=== PATIENT | female | born 1955 | race Caucasian/White ===

== ENCOUNTER 2020-07-30 08:28 | Outpatient (CLI) | payer OTHER, SELFPAY ==
--- NOTE | ~2020-07-30 | DEXA_ITS ---
Bone Density Report Name: Britt Cline Age: 64 Sex: Female Ethnicity: White Date of : 1955 Indication: postmenopausal osteoporosis; height loss; Referring Provider: JERED VU Study: Bone densitometry was performed. Exam Date: July 30, 2020 Accession number: [id number] Bone Density: Region BMD T-score Z-score Classification AP Spine (L1-L4) 0.752 -2.7 -0.8 Osteoporosis Femoral Neck (Left) 0.543 -2.8 -1.1 Osteoporosis Total Hip (Left) 0.662 -2.3 -1.0 Osteopenia Total Hip Bilateral Avg 0.677 -2.2 -0.8 Osteopenia Femoral Neck (Right) 0.532 -2.9 -1.3 Osteoporosis Total Hip (Right) 0.691 -2.1 -0.7 Osteopenia World Health Organization criteria for BMD impression classify patients as: Normal (T-score at or above -1.0), Osteopenia (T-score between -1.0 and -2.5), or Osteoporosis (T-score at or below -2.5). 10-year Fracture Risk: FRAX not reported because: Some T-score for Spine Total or Hip Total or Femoral Neck at or below -2.5 Previous Exams: Region Exam Age BMD T-score BMD Change BMD Change Date g/cm2 vs Baseline vs Previous AP Spine(L1-L4) 07/30/2020 64 0.752 -2.7 -0.006(-0.8%)# -0.006(-0.8%)# 06/17/2011 55 0.758 -2.6 Total Hip(Left) 07/30/2020 64 0.662 -2.3 0.011(1.8%)# 0.011(1.8%)# 06/17/2011 55 0.651 -2.4 Total Hip(Right) 07/30/2020 64 0.691 -2.1 0.055(8.6%)# 0.055(8.6%)# 06/17/2011 55 0.636 -2.5 *Denotes significance at 95% confidence level, LSC for AP Spine = 0.022 g/cm2, LSC for Total Hip = 0.027 g/cm2 Clinical Information Provided by Patient: Has used the following medications: Calcium Patient maximum height was 65 Menopause Age: 45 No regular weight bearing exercise Onset of menses at age 11 Number of children 1 Impression: The patient has osteoporosis, based on the Right Femoral Neck T-score. No significant bone loss was observed. Discussion: INCREASED RISK OF FRACTURE. BONE DENSITY IS UNDESIRABLY LOW AT ONE OR MORE SKELETAL SITES, CONSISTENT WITH POSTMENOPAUSAL OSTEOPOROSIS. This patient's lowest T-score meets the World Health Organization's (WHO) criteria for osteoporosis at one or more sites (T-score -2.5 or below). In untreated patients, the risk of osteoporotic fracture increases approximately two-fold for each 1.0 SD decrease in T-score. Low bone density is not the only risk factor for fracture; also consider factors such as patient's age, frailty or poor health, risk of falling, risk of injury, pr
--- NOTE | ~2020-07-30 | MM_ITS ---
EXAMINATION: MM screening collette BI w jairo HISTORY: Screening mammogram TECHNIQUE: Craniocaudal and mediolateral oblique 3-D tomosynthesis images were obtained and synthetic 2-D images were generated. Bilateral rotated lateral CC views. ...CAD analysis was submitted and int erpreted. COMPARISON: No prior mammogram is available for comparison at this institution. BREAST PARENCHYMAL COMPOSITION: There are scattered areas of fibroglandular density. FINDINGS: There is mammographic asymmetry in the medial right breast on craniocaudal view. Otherwise there is no evidence of suspicious mass, calcification, or architectural distortion to sugg est malignancy in either breast. There has been no suspicious interval change. IMPRESSION: 1. Right breast mammographic asymmetry 2. Diagnostic right mammogram is recommended, with ultrasound if required. BI-RADS Category 0: Incomplete: Needs additional imaging evaluation. Reviewed, dictated and finalized at location A.
== END 2020-07-30 08:29 | disposition home or self-care (01) ==
LOC: ANHIMG 08:29
PROVIDERS: PCP Internal Medicine; Visit Provider Internal Medicine
DX: Z12.31 Encounter for screening mammogram for malignant neoplasm of breast (principal); M81.0 Age-related osteoporosis without current pathological fracture; R92.8 Other abnormal and inconclusive findings on diagnostic imaging of breast; M85.852 Other specified disorders of bone density and structure, left thigh; M85.851 Other specified disorders of bone density and structure, right thigh
CPT/HCPCS: 77063; 77067; 77080

== ENCOUNTER 2020-08-20 11:44 | Outpatient (CLI) | payer OTHER, SELFPAY ==
--- NOTE | ~2020-08-20 | MMUS_ITS ---
EXAMINATION: MM diagnostic mammo unilat RT, US breast RT limited HISTORY: Follow-up right breast asymmetry TECHNIQUE: Additional 3-D tomosynthesis images of the right breast were performed and synthetic 2-D i mages were generated. CAD analysis was submitted and interpreted. High resolution right breast ultras ound was performed. COMPARISON: 07/30/2020 BREAST PARENCHYMAL COMPOSITION: Breast composed of scattered areas of fibroglandular density. FINDINGS: MAMMOGRAPHIC FINDINGS: The focal area of asymmetry medially in the right breast is less apparent with spot compression views , likely superimposed fibroglandular tissue. No discrete mass or architectural distortion. ULTRASOUND: Limited left breast ultrasound: Normal heterogeneous echotexture without focal solid or cystic mass. IMPRESSION: 1. No mammographic or sonographic evidence for malignancy in the right breast. 2. Routine yearly screening mammogram and regular clinical breast examination are recommended. BI-RADS Category 2: Benign finding(s). Reviewed, dictated and finalized at location A. IMPRESSION: 1. No mammographic or sonographic evidence for malignancy in the right breast. 2. Routine yearly screening mammogram and regular clinical breast examination a re recommended. BI-RADS Category 2: Benign finding(s).
== END 2020-08-20 11:45 | disposition home or self-care (01) ==
LOC: ANHIMG 11:45
PROVIDERS: PCP Internal Medicine; Visit Provider Internal Medicine
DX: R92.8 Other abnormal and inconclusive findings on diagnostic imaging of breast (principal)
CPT/HCPCS: 76642; 77065

== ENCOUNTER 2021-06-13 22:33 | Emergency (ER) | payer OTHER, SELFPAY ==
--- NOTE | ~2021-06-13 | XR_ITS ---
EXAMINATION: XR knee LT 3V DATE: 06/13/2021 23:22 INDICATION: Left knee pain. Fall. TECHNIQUE: 5 views of left knee were obtained. COMPARISON: None. FINDINGS: Bone alignment is normal. No fracture. There is mild osteoarthritis of patellofemoral carmita rtment. There is a small knee joint effusion. IMPRESSION: 1. Mild left knee osteoarthritis. 2. Small left knee joint effusion. Reviewed, dictated and finalized at location A.
--- NOTE | ~2021-06-13 | CT_ITS ---
EXAMINATION: CT knee LT wo con DATE: 06/14/2021 00:17 INDICATION: Left knee pain post fall TECHNIQUE: High resolution computed tomography (CT) of the left knee was performed without intravenou s contrast. Additional sagittal and coronal reconstructions were performed. Automated exposure contro l and iterative reconstruction technique were employed. The dose-length product was 499.77 mGy-cm. COMPARISON: None FINDINGS: Lateral dislocation of the patella with small impaction fracture along the inferior aspect of the med ial patellar facet which remains perched along the cephalad aspect of the lateral rim of the lateral trochlea. The trough of the impaction fracture measures approximately 2-3 mm in depth. No evident cor responding fracture of the distal femur. Some associated small layering lipohemarthrosis with fat, fl uid and hematocrit levels at the lateral gutter of the suprapatellar pouch. Cannot exclude an additio nal small minimally displaced likely cortical avulsion fracture along the medial margin of the patell a although there is no significant thickening of the patellofemoral retinaculum or surrounding inflam matory stranding to more specifically suggest this. IMPRESSION: 1. Lateral patellar dislocation which is perched along the cephalad margin of the lateral rim of the lateral trochlea with small mildly depressed impaction fracture along the inferior aspect of the medi al patellar facet. 2. Small lipohemarthrosis. Reviewed, dictated and finalized at location A. IMPRESSION: 1. Lateral patellar dislocation which is perched along the cephalad margin of t he lateral rim of the lateral trochlea with small mildly depressed impaction fr acture along the inferior aspect of the medial patellar facet. 2. Small lipohemarthrosis.
[2021-06-13 22:40] VITALS: BP 141/73; PULSE 98; RESP 20; TEMP 36.8; O2SAT 96
[2021-06-13] MEDS: KETOROLAC 30 MG/ML VIAL (*BKC) IV PUSH (23:08)
[2021-06-14] MEDS: ONDANSETRON HCL ODT 4 MG TABLET PO (00:04)
[2021-06-14 00:30] VITALS: BP 121/66; PULSE 78; RESP 20; O2SAT 98
[2021-06-14] MEDS: ORPHENADRINE CITRATE 30 MG/ML 2 ML VIAL 60 MG IM (01:18)
--- NOTE | 2021-06-14 01:20 | PC.NURSE ---
Pt. resting c foot elevated, reports from CT scan back and ERP Dr Moore discussed report c pt. Orders obtained for more pain medication and pt agreeable to reduction of patellar attempt.
[2021-06-14] MEDS: ONDANSETRON INJ 4 MG/2 ML VIAL IV PUSH (01:48)
[2021-06-14] MEDS: HYDROmorphone HCL INJ (*CRX) 2 MG/ML VIAL 1 MG IV PUSH ×2 (01:49)
--- NOTE | 2021-06-14 01:58 | PC.NURSE ---
ERP DR Moore attempted to reduce and replace pts. patellar, unsuccessful, pt in severe pain. Pt. wishes to go to [place] if able to have procedure done. ERP notified house supv at [place]. Will await call back from [place] ER.
--- NOTE | 2021-06-14 02:20 | ED.LOWEXIN ---
HPI - Extremity Injury (Lower) General Chief Complaint: Extremity Injury, Lower Stated Complaint: AMB Time Seen by Provider: 06/13/21 22:50 Source: patient and family Mode of arrival: ambulatory Limitations: no limitations History of Present Illness HPI Narrative: Mrs fuentes comes in after walking around her bar at home and hitting her left knee. It does not sound like the force of impact was significant, but comes in with pain to the left knee which is moderately severe to severe, ongoing since the injury 20 minutes ago. She has dislocated the knee 4 times in the past according to the patient. No modifying factors, No apparent numbness anywhere with structures associated with this. MD complaint: knee injury Onset (ago): minute(s) Type of Injury: blunt Place: home Severity: moderate Relieving factors: nothing and immobilization Exacerbating factors: weight bearing and movement Context: direct blow Associated symptoms: unable to bear weight Related Data Home Medications Medication Instructions Recorded Confirmed cholecalciferol (vitamin D3) 50 50 mcg PO DAILY 02/19/21 06/13/21 mcg (2,000 unit) capsule calcium carbonate-vitamin D3 [All 2 tablet PO 06/13/21 Day Calcium] Allergies Allergy/AdvReac Type Severity Reaction Status Date / Time Penicillins Allergy Unknown Unknown Verified 02/14/21 07:52 Sulfa (Sulfonamide Allergy Unknown Unknown Verified 02/14/21 07:52 Antibiotics) sulfanilamide Allergy Unknown Unknown Verified 02/14/21 07:52 ERYTHROMYCINS Allergy Mild Unknown Uncoded 02/14/21 07:52 Review of Systems Constitutional: Constitutional: Reports no additional constitutional complaints Eyes: Eyes: Reports no additional eye complaints ENT: Reports system reviewed and no additional complaints, except as documented Cardiovascular: Cardiovascular: Reports no additional cardiovascular complaints Respiratory: Respiratory: Reports no additional respiratory complaints Gastrointestinal: Gastrointestinal: Reports no additional gastrointestinal complaints Genitourinary: Genitourinary: Reports no additional female genitourinary complaints Musculoskeletal: Musculoskeletal: Reports no additional musculoskeletal complaints Integumentary/Breasts: Skin/Breast: Reports system reviewed and no additional complaints, except as docu Neurologic: Reports system reviewed and no additional complaints, except as documented Psychiatric: Psychiatric: Reports no additional psychiatric complaints Endocrine: Endocrine: Reports no additional endocrine complaints Hematologic/Lymphatic: Hematologic/Lymphatic: Reports no additional hematologic/lymphatic complaints Allergic/Immunologic: Allergic/Immunologic: Reports no additional allergic/immunologic complaints PMFSH Past Medical History Medical History (Updated 06/14/21 @ 03:00 by Rajendra Moore MD) Age-related osteoporosis without current pathological fracture Anxiety Overweight (07/06/17) Postmenopausal disorder Pure hypercholesterolemia Vitamin D deficiency Surgical History Surgical History (Updated 06/14/21 @ 02:44 by Rajendra Moore MD) No significant past surgical history Family History Family History Mother Depression Father Acute myocardial infarction Social History Social History Smoking status: Former smoker Second hand tobacco smoke exposure: No Alcohol intake: current Exam Const: General: alert Orientation/consciousness: patient oriented x3 Other: Appears to be in pain HENMT: Head: normal to inspection Ears: external ears normal General nose exam: Normal external nose present Mouth: Yes Normal oral and palatal mucosa present Eyes: Conjunctivae: conjunctivae normal Neck: Neck: normal visual inspection Chest: Chest palpation & inspection: normal inspection of the chest Resp: Effort & Inspection: normal respiratory effort Aus
--- NOTE | 2021-06-14 02:22 | PC.NURSE ---
ERP spoke to ER DR rosamaria Kirkland who accepts for pt transfer to their ER. Paperwork signed for transfer.
--- NOTE | 2021-06-14 02:37 | PC.NURSE ---
Call placed to [facility], report given to Izzy. Call paged for [facility] for transfer. No crew available at this time, will have a wait time for pt transfer. Pt and spouse informed.
[2021-06-14 02:45] VITALS: BP 121/70; PULSE 73; RESP 18; TEMP 36.6; O2SAT 96
--- NOTE | 2021-06-14 03:00 | PC.NURSE ---
Report to EMS, pt transferred to cot for transport c difficulty.
== END 2021-06-14 03:01 | disposition short-term general hospital (02) ==
PROVIDERS: Emergency Provider Emergency Medicine; PCP Internal Medicine
DX: S83.005A Unspecified dislocation of left patella, initial encounter (principal); W22.8XXA Striking against or struck by other objects, initial encounter
CPT/HCPCS: 73562; 73700; 96372; 96374; 96375; 96376; 99285; A9270; J1170; J1885; J2360; J2405

== ENCOUNTER 2021-06-14 03:32 | Emergency (ER) | payer OTHER, SELFPAY ==
[2021-06-14] VITALS (16 sets, daily range): BP systolic 93–140; BP diastolic 60–84; PULSE 77–100; RESP 8–23; TEMP 36.5; O2SAT 99–100
[2021-06-14] MEDS: fentaNYL CITRATE INJ (*CRX) 100 MCG/2 ML VIAL (03:45)
[2021-06-14] MEDS: LORazepam INJ (*CRX) 2 MG/ML VIAL (03:53)
--- NOTE | 2021-06-14 04:22 | ED.LOWEXIN ---
HPI - Extremity Injury (Lower) General Chief Complaint: Extremity Injury, Lower Stated Complaint: lf knee dislocation Time Seen by Provider: 06/14/21 03:36 History of Present Illness HPI Narrative: 65 yo female w/ h/o patellar dislocation transferred from [place] for the same. She was walking earlier this evening when she bumped it against a table and it popped out of place. They were not able to reduce it at [place], so they sent her here for further management. Related Data Home Medications Medication Instructions Recorded Confirmed cholecalciferol (vitamin D3) 50 50 mcg PO DAILY 02/19/21 06/13/21 mcg (2,000 unit) capsule calcium carbonate-vitamin D3 [All 2 tablet PO DAILY 06/13/21 06/14/21 Day Calcium] Allergies Allergy/AdvReac Type Severity Reaction Status Date / Time Penicillins Allergy Unknown Unknown Verified 02/14/21 07:52 Sulfa (Sulfonamide Allergy Unknown Unknown Verified 02/14/21 07:52 Antibiotics) sulfanilamide Allergy Unknown Unknown Verified 02/14/21 07:52 ERYTHROMYCINS Allergy Mild Unknown Uncoded 02/14/21 07:52 Review of Systems Constitutional: Constitutional: Denies fever(s) Cardiovascular: Cardiovascular: Denies chest pain Respiratory: Respiratory: Denies dyspnea Musculoskeletal: Musculoskeletal: Denies back pain Neurologic: Denies numbness and Denies weakness [facility] Past Medical History Medical History Age-related osteoporosis without current pathological fracture Anxiety Overweight (07/06/17) Postmenopausal disorder Pure hypercholesterolemia Vitamin D deficiency Surgical History Surgical History No significant past surgical history Family History Family History Mother Depression Father Acute myocardial infarction Social History Social History Smoking status: Former smoker Second hand tobacco smoke exposure: No Alcohol intake: current Exam Const: General: no acute distress and alert Orientation/consciousness: patient oriented x3 HENMT: Head: normal to inspection Throat: posterior oropharynx normal Resp: Effort & Inspection: normal respiratory effort Auscultation: clear to auscultation bilaterally Cardio: Rate: regular rate Rhythm: regular rhythm Other: 2+ left DP and PT Skin: General skin exam: normal color Wounds: no wounds Neuro: General: patient oriented x3, moves all extremities, no focal motor deficits and CN's II-XI intact bilaterally Extrem: Other: lateral patellar dislocation Course Vital Signs Vital signs: Vital Signs Temperature 36.5 C 06/14/21 03:30 Pulse Rate 100 06/14/21 03:30 Respiratory Rate 23 H 06/14/21 03:30 Blood Pressure 140/69 06/14/21 03:30 Pulse Oximetry 100 06/14/21 03:30 Temperature 36.5 C 06/14/21 04:30 Pulse Rate 78 06/14/21 06:20 Respiratory Rate 11 L 06/14/21 06:20 Blood Pressure 106/62 06/14/21 06:20 Pulse Oximetry 100 06/14/21 06:20 Procedures Orthopedic Joint Reduction Joint #1: Joint Reduction Location: knee/patella Analgesia: procedural sedation Pre-Procedure Neuro Vascular Exam: normal Technique used: direct manipulation Post-reduction neuro exam: intact Post-reduction vascular: intact Post Reduction X-Ray Obtained: No Post Reduction X-Ray Results: reduced Splint Applied: No Patient Tolerated Procedure: well Procedural Sedation Procedural Sedation #1: Procedure: patella reduction Provider Performed: sedation and procedure Informed Consent Obtained: yes Equipment in Room: bag and mask, capnography, bus driver/monitor, crash cart, oxygen, pulse oximeter and suction Plan for Sedation: moderate sedation ASA Class: II Mallampati Classifica
[2021-06-14] MEDS: SODIUM CHLORIDE 0.9% IV 1,000 ML 999 ML (04:35)
--- NOTE | 2021-06-14 04:35 | PC.NURSE ---
EDP at bedside to start moderate sedation.
--- NOTE | 2021-06-14 06:26 | PC.NURSE ---
pt is fully alert and oriented at this time and back to baseline. spouse at bedside. pt resting w/ call light in reach.
== END 2021-06-14 06:40 | disposition home or self-care (01) ==
PROVIDERS: Emergency Provider Emergency Medicine; PCP Internal Medicine
DX: S83.015A Lateral dislocation of left patella, initial encounter (principal); E78.00 Pure hypercholesterolemia, unspecified; E55.9 Vitamin D deficiency, unspecified; E66.3 Overweight; Z68.31 Body mass index [BMI] 31.0-31.9, adult; Z87.891 Personal history of nicotine dependence; W22.03XA Walked into furniture, initial encounter
CPT/HCPCS: 27560; 96374; 96375; 99285; J2060; J2704; J3010; J7030

== ENCOUNTER 2023-01-13 08:21 | Outpatient (CLI) | payer OTHER, MEDICARE, SELFPAY ==
--- NOTE | ~2023-01-13 | MM_ITS ---
EXAMINATION: MM screening collette BI w jairo HISTORY: Screening mammogram, family history of breast cancer in her mother. TECHNIQUE: Craniocaudal and mediolateral oblique 3-D tomosynthesis images were obtained and synthetic 2-D images were generated. CAD analysis was submitted and interpreted. COMPARISON: 08/20/2020, 07/30/2020, 06/17/2011 BREAST PARENCHYMAL COMPOSITION: There are scattered areas of fibroglandular density. FINDINGS: No suspicious mass, calcification, or architectural distortion are identified in either julianna ast to suggest malignancy. There has been no suspicious interval change. IMPRESSION: 1. No mammographic evidence of malignancy. 2. Recommend routine screening mammography in one year. BI-RADS Category 1: Negative Reviewed, dictated and finalized at location A. OR IT BUSINESS ANALYST
== END 2023-01-13 08:22 | disposition home or self-care (01) ==
PROVIDERS: PCP Internal Medicine; Visit Provider Nurse Practitioner
DX: Z12.31 Encounter for screening mammogram for malignant neoplasm of breast (principal)
CPT/HCPCS: 77063; 77067

== ENCOUNTER 2023-12-18 08:45 | Outpatient (CLI) | payer MEDICARE, SELFPAY ==
--- NOTE | ~2023-12-18 | DEXA_ITS ---
Bone Density Report Name: SHEELA JOY Age: 68 Sex: Female Ethnicity: White Date of : 1955 Indication: postmenopausal; screening for osteoporosis; height loss; Referring Provider: MARY MUSA Study: Bone densitometry was performed. Exam Date: December 18, 2023 Accession number: [id number] Bone Density: Region BMD T-score Z-score Classification AP Spine(L1-L4) 0.775 -2.5 -0.4 Osteoporosis Femoral Neck (Left) 0.589 -2.3 -0.5 Osteopenia Total Hip (Left) 0.659 -2.3 -0.8 Osteopenia Femoral Neck (Right) 0.591 -2.3 -0.5 Osteopenia Total Hip (Right) 0.633 -2.5 -1.0 Osteoporosis Total Hip Mean 0.646 -2.4 -0.9 Osteopenia World Health Organization criteria for BMD impression classify patients as: Normal (T-score at or above -1.0), Osteopenia (T-score between -1.0 and -2.5), or Osteoporosis (T-score at or below -2.5). 10-year Fracture Risk: FRAX not reported because: Some T-score for Spine Total or Hip Total or Femoral Neck at or below -2.5 Clinical Information Provided by Patient: Has used the following medications: Prolia (i.e. denosumab), Vitamin D, Calcium Patient maximum height was 65.5 Menopause Age: 45 Drinks caffeinated beverages Onset of menses at age 10 Number of children 1 Impression: The patient has osteoporosis, based on the Total Spine T-score. Discussion: INCREASED RISK OF FRACTURE. BONE DENSITY IS UNDESIRABLY LOW AT ONE OR MORE SKELETAL SITES, CONSISTENT WITH POSTMENOPAUSAL OSTEOPOROSIS. This patient's lowest T-score meets the World Health Organization's (WHO) criteria for osteoporosis at one or more sites (T-score -2.5 or below). In untreated patients, the risk of osteoporotic fracture increases approximately two-fold for each 1.0 SD decrease in T-score. Low bone density is not the only risk factor for fracture; also consider factors such as patient's age, frailty or poor health, risk of falling, risk of injury, previous osteoporotic fracture, family history of osteoporosis, cigarette smoking, low body weight, etc. Not everyone with low bone mineral density has osteoporosis; osteomalacia and other metabolic bone disorders should also be considered. Patients who have osteoporosis should be evaluated for specific diseases and conditions (secondary causes) that may cause or contribute to bone loss. The [place] [employer]ocrinologists (AACE) and National Osteoporosis Foundation (NOF) recommend pharmacologic intervention for all postmenopausal women whose T-score is in this range. The patient should follow a healthful lifestyle (good nutrition with adequate calcium and vitamin D, and appropriate weight-bearing exercise). Follow-Up: Consider a repeat BMD and Vertebral Fracture Assessment (VFA) exam in 2 years or sooner if medically necessary, to reassess th
== END 2023-12-18 08:46 | disposition home or self-care (01) ==
LOC: ANHIMG 08:47
PROVIDERS: PCP Family Medicine; Visit Provider Family Medicine
DX: E55.9 Vitamin D deficiency, unspecified (principal); E66.3 Overweight; E78.00 Pure hypercholesterolemia, unspecified; F41.9 Anxiety disorder, unspecified; M81.0 Age-related osteoporosis without current pathological fracture; N95.1 Menopausal and female climacteric states; M85.852 Other specified disorders of bone density and structure, left thigh; M85.851 Other specified disorders of bone density and structure, right thigh
CPT/HCPCS: 77080